=== PATIENT | male | born 1945 | race Caucasian/White ===

== ENCOUNTER 2025-03-20 14:53 | Outpatient (CLI) | payer OTHER, SELFPAY ==
--- NOTE | ~2025-03-20 | XR_ITS ---
EXAMINATION: XR chest 2V, 03/20/2025 15:10 CDT HISTORY: hx of nicotine dependence and stroke COMPARISON: No comparisons available. Technique: 2 views obtained. Findings: The lungs are clear, no effusion. No pneumothorax. Heart is normal size. Mediastinal and hilar contours are within normal limits. Bony thorax no acute abnormality. Impression: No acute cardiopulmonary abnormality. Reviewed, dictated and finalized at location P. Impression: No acute cardiopulmonary abnormality.
== END 2025-03-20 14:54 | disposition home or self-care (01) ==
LOC: ANHBWCLAB 14:55
PROVIDERS: PCP Nurse Practitioner Adult Health; Visit Provider Nurse Practitioner Adult Health
DX: E78.5 Hyperlipidemia, unspecified (principal); Z12.5 Encounter for screening for malignant neoplasm of prostate; F17.200 Nicotine dependence, unspecified, uncomplicated; Z86.73 Personal history of transient ischemic attack (TIA), and cerebral infarction without residual deficits
CPT/HCPCS: 71046

== ENCOUNTER 2025-03-21 13:59 | Outpatient (CLI) | payer OTHER, SELFPAY ==
[2025-03-21 19:23] LABS: Hematocrit 37.9 % (42.0-52.0); Hemoglobin 12.2 g/dL (14.0-18.0); Mean Corpuscular HGB Conc 32.2 g/dl (32-36); Mean Corpuscular Hemoglobin 30.4 pg (26-34); Mean Corpuscular Volume 94.5 fl (80-100); Platelet Count Result 198 k/mm3 (150-375); Red Blood Count 4.01 M/mm3 (4.6-6.20); White Blood Count 5.2 K/mm3 (4.5-10.0)
[2025-03-21 19:33] LABS: Alanine Aminotransferase 17 U/L (6-50); Albumin Level 4.3 g/dL (3.5-5.1); Alkaline Phosphatase 70 U/L (38-126); Anion Gap 6 mmol/L (4-12); Aspartate Amino Transferase 80 U/L (17-59); Bilirubin,Total 0.7 mg/dL (0.2-1.3); Blood Urea Nitrogen 23 mg/dL (9-20); Calcium 9.3 mg/dL (8.4-10.2); Carbon Dioxide 29 mmol/L (22-30); Chloride 101 mmol/L (98-107); Cholesterol 97 mg/dL (0-200); Estimated Glomerular Filt Rate 46; Glucose 92 mg/dL (65-110); HDL Direct 37 mg/dL; Potassium 4.8 mmol/L (3.4-5.0); Sodium 136 mmol/L (137-145); Total Protein 8.0 g/dL (6.3-8.2); Triglycerides 65 mg/dL (<150)
[2025-03-21 20:09] LABS: Prostate Specific Antigen 4.7 ng/mL (< OR = 4.0)
== END 2025-03-21 14:00 | disposition home or self-care (01) ==
LOC: ANHBWCLAB 14:01
PROVIDERS: PCP Nurse Practitioner Adult Health; Visit Provider Nurse Practitioner Adult Health
DX: E78.5 Hyperlipidemia, unspecified (principal); Z12.5 Encounter for screening for malignant neoplasm of prostate
CPT/HCPCS: 36415; 80053; 80061; 84153; 85027; G0103

== ENCOUNTER 2025-03-28 08:44 | Outpatient (CLI) | payer OTHER, SELFPAY ==
--- NOTE | ~2025-03-28 | CT_ITS ---
EXAMINATION:CT lung screening DATE: 03/28/2025 09:08 INDICATION: Nicotine dependence, cigarettes, uncomplicated. TECHNIQUE: Computed tomography (CT) of the chest was performed without intravenous contrast. Automated exposure control and iterative reconstruction technique were employed. The dose-length product (DLP) was 86.27 mGy-cm. COMPARISON: None. FINDINGS: There is moderate emphysema. There is mild atelectasis bilaterally. There is a 4 mm nodule at right major fissure. Calcified right lung nodules and calcified right hilar lymph nodes are consistent with old granulomatous disease. There is a 4 mm nodule in right lower lobe. There is a 4 mm nodule in right lower lobe. There are a few scattered pulmonary nodules measuring up to 3 mm. No pleural effusion. The heart size is normal. There are coronary artery calcifications. No pericardial effusion. Calcifications in the liver and spleen are consistent with old granulomatous disease. There are cysts in the liver measuring up to 17 mm. There is a stent graft in abdominal aorta. There is severe left hydronephrosis. There is mild chronic anterior wedging of multiple thoracic vertebral bodies. There is moderate thoracic spondylosis. IMPRESSION: 1. Lung-RADS category 2S: Benign appearance or behavior. Continue annual screening with noncontrast low-dose chest CT in 12 months. 2. Severe left hydronephrosis. Reviewed, dictated and finalized at location E. IMPRESSION: 1. Lung-RADS category 2S: Benign appearance or behavior. Continue annual screen ing with noncontrast low-dose chest CT in 12 months. 2. Severe left hydronephrosis.
--- NOTE | ~2025-03-28 | US_ITS ---
Clinical History: R09.89 - Other specified symptoms and signs involving the... Examination: US carotid duplex BI Comparison: None Technique: Grayscale, color, duplex/spectral Doppler sonography carotid and vertebral arteries. Distal CCA and Peak ICA systolic velocities provided. Society of Radiologists in Ultrasound (SRU) consensus criteria utilized, indirectly assessing stenosis by velocities. Findings: Extensive plaque left ICA Right side: CCA - 54 cm/sec. ICA - 109 cm/sec. ICA/CCA - 2.0 Left Side: CCA - 75 cm/sec. ICA - 130 cm/sec. ICA/CCA - 1.8 Normal antegrade flow measured bilateral vertebral arteries. IMPRESSION: 1. 50-69% stenosis left ICA. 2. No hemodynamically significant right ICA stenosis (i.e., if any stenosis, less than 50%). 3. Normal bilateral antegrade vertebral artery flow. Stenosis measured by Society of Radiologists in Ultrasound (SRU) criteria. Reviewed, dictated and finalized at location R. IMPRESSION: 1. 50-69% stenosis left ICA. 2. No hemodynamically significant right ICA stenosis (i.e., if any stenosis, l ess than 50%). 3. Normal bilateral antegrade vertebral artery flow. Stenosis measured by Society of Radiologists in Ultrasound (SRU) criteria.
--- OUTSIDE RECORDS SUMMARY | 2025-03-28 09:10 | XMS_ITS | Clinical Summary ---
Author Organization [facility] Address [address] [place] [phone] Phone Care Team Providers Care Residential Carpet Installer Name Role Phone Unavailable Primary Care Provider Unavailabl e Allergies No known active allergies Medications atorvastatin (LIPITOR) 40 mg tablet Take 40 mg by mouth Daily LATE. Active HYDROcodone-acet aminophen (NORCO) 5-325 mg tablet Take 1 Tab by mouth every 4 hours as needed for Pain, Mild (For Pain Scale 1-3). 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 Gender Identity Not on file Sexual Orientation Not on file Occupation Industry Job Start Date Job End Date Not on file Not on file Not on file Not on file Last Filed Vital Signs Vital Sign Reading Time Taken Comments Blood Pressure 138/67 05/17/2013 8:18 AM PROCESSING ANALYST Pulse 72 05/17/2013 8:18 AM PROCESSING ANALYST Temperature 36 C (96.8 F) 05/17/2013 8:18 AM PROCESSING ANALYST Respiratory Rate 16 05/17/2013 5:10 AM PROCESSING ANALYST Oxygen Saturation 93% 05/17/2013 5:10 AM PROCESSING ANALYST Inhaled Oxygen Concentration - - Weight 97.9 kg (215 lb 12.8 oz) 05/16/2013 9:27 AM PROCESSING ANALYST Height 185.4 cm (6' 1) 04/27/2013 11:0 1 AM PROCESSING ANALYST Body Mass Index 28.47 04/27/2013 11:01 AM PROCESSING ANALYST Plan of Treatment Health Maintenance Due Date Last Done Comments DTAP/TDAP/TD VACCINES (1 - Tdap) 1966 PNEUMOCOCCAL VACCINE 50+ YEARS (1 of 1 - PCV) 07/30/18 98 ZOSTER VACCINE (1 of 2) 1997 RSV VACCINE (60+ or ) (1 - 1-dose 75+ series) 2022 INFLUENZA VACCINE (#1) 2025 Insurance [facility] BLUE ACCESS/TRUE BLUE PPO Advance Directives For more information, please contact: [phone] * Full Code (Latest Code Status on File) Date Activated Date Inactivated Comments 05/16/2013 2:58 PM 05/17/2013 11:36 AM * Full Code Date Activated Date Inactivated Comments 05/16/2013 9:19 AM 05/16/2013 2:58 PM
--- OUTSIDE RECORDS SUMMARY | 2025-03-28 09:10 | XMS_ITS | Clinical Summary ---
Author Organization [facility] Address [address] [place] [address] Care Team Providers Care Franchise Field Consultant Name Role Phone Unavailable Primary Care Provider Unavailabl e Source Comments [facility],non-owned Affiliates and Associated Physician Practices is amultiple site organization consisting of ambulatory clinics and hospital sitesin [place], [place], [place] and [place]. This disclosure is being madepursuant to the Care Everywhere program and may not contain all information available regarding this patient. Last updated 18.[facility] Allergies No known active allergies Immunizations Immunization Administration Dates Next Due INFLUENZA VACCINE, HIGH-DOSE , QUADR. (FLUZONE HIGH-DOSE QUADRIVALENT; 65Y+), 0.7 ML ([id number]) 03/21/2018 Social History Tobacco Use Types Packs/Day Years Used Date Smoking Tobacco: Never Assessed Sex and Gender Information Value Date Recorded Sex Assigned at Not on file Legal Sex Male 4:29 PM CDT Gender Identity Not on file Sexual Orientation Not on file Plan of Treatment Health Maintenance Due Date Last Done Comments HEPATITIS C SCREENING 07/25/1965 DTAP/TDAP/TD VACCINES (1 - Tdap) 1966 PNEUMOCOCCAL VACCINE 50+ (1 of 1 - PCV) 1997 ZOSTER VACCINE (1 of 2) 1997 Respiratory Syncytial Virus (RSV) Vaccine Pt: or over 60 yrs (1 - 1-dose 75+ series) 2022 DEPRESSION SCREENING 06/13/2024 COVID-19 VACCINE ( - 2023-2 5 season) 2025 INFLUENZA VACCINE (#1) 2025 03/21/2018 HEPATITIS B VACCINE Aged Out No longe r eligible based on patient's age to complete this topic HIB VACCINE Aged Out No longer eligi ble based on patient's age to complete this topic HPV VACCINE Aged Out No longer eligi ble based on patient's age to complete this topic MENINGOCOCCAL (Group B) VACC INE SHARED DECISION-MAKING Aged Out No longer eligibl e based on patient's age to complete this topic MENINGOCOCCAL GROUPS A/C/Y/W VACCINE Aged Out No longer eligible b ased on patient's age to complete this topic Insurance MEDICARE MEDICARE MEDICARE
--- OUTSIDE RECORDS SUMMARY | 2025-03-28 09:10 | XMS_ITS | Clinical Summary ---
Author Organization [facility] Address [address] [place] [id number] Care Team Providers Care Health Information Tech Name Role Phone WingSilvia ZAKIA Primary Care Provider [phone] Allergies Active Allergy Reactions Criticality Noted Date Comments Cyclobenzaprine Other (See comments) Medium 07/01/2017 Swelling, depression Swelling, bleeding, depression Naproxen Swelling Medium 08/01/2017 Fluid retention Medications ascorbic acid (ascorbic acid) 500 mg tablet,chewable Take 1 tablet/chew tab (500 mg total) by mouth 08/12/19 18 Active magnesium gluconate 200 mg tabletIndications :hypomagnesemia Take 2 tablets (400 mg total) by mouth daily Active vitamin E 1,000 unit capsule Take 1 capsule (1,000 Units total) by mouth daily Active lidocaine (LMX) 4 % cream Apply topically 3 (three) times a day 30 g 12/06/19 24 Active HYDROcodone-aceta minophen (NORCO) 5-325 mg per tabletIndications :Pain Take 1-2 tablets by mouth every 6 (six) hours as needed for pain 21 tablet 11/10/19 25 Active atorvastatin (LIPITOR) 80 mg tabletIndications :Acute CVA (cerebrovascular accident) (HCC),Hyperlipide preston, unspecified hyperlipidemia type Take 1 tablet (80 mg total) by mouth daily 90 tablet 02/09/20 25 Active clopidogreL (PLAVIX) 75 mg tabletIndications :Acute CVA (cerebrovascular accident) (HCC) Take 1 tablet by mouth once daily 30 tablet 09/26/20 25 Active lisinopriL (PRINIVIL,ZESTRIL ) 30 mg tabletIndications :Hypertension, essential,Acute CVA (cerebrovascular accident) (HCC) Take 1 tablet by mouth once daily 90 tablet 03/19/20 25 Active lisinopriL (PRINIVIL,ZESTRIL ) 30 mg tabletIndications :Hypertension, essential,Acute CVA (cerebrovascular accident) (HCC) Take 1 tablet (30 mg total) by mouth daily 90 tablet 1 09/14/19 25 025 Discontinued clopidogreL (PLAVIX) 75 mg tabletIndications :Acute CVA (cerebrovascular accident) (HCC) Take 1 tablet by mouth once daily 90 tablet 12/01/19 25 025 Discontinued Active Problems Problem Noted Date Diagnosed Date Epidermal cyst 12/20/2023 Assessment & Plan (01/10/2024 12:37 PM CDT): Follow up from appt with Dr. Perez Continues to have scant amount of purulent drainage Denies pain or fever Would prefer to continue to monitor Assessment & Plan (12/20/2023 9:09 AM CDT): We have discussed further treatments with the patient and family at bedside. To ensure this would not come back we would have to ensure we removed the entirety of the lining of the cyst wall. Given the amount of inflammation still present this would result in a very significant sized defect needed to be made. We would prefer to place him on extended duration of antibiotics to see if the last residual purulence we will stop and if the skin will heal and be viable. Then they can decide whether or not it is worth it to remove the cyst so that it does not come back versus just watching as they have done for the other ones in the past. Dysthymia 10/06/2023 Assessment & Plan (10/06/2023 4:51 PM CDT): Patient reports generally low mood; decreased activity, though recently improving for patient Patient's which is caused him to feel down and lose interest in things in life Encouraged patient to continue to engage with activities as able; continue to monitor; no medication at this time Hypertension, essential 05/11/2023 Assessment & Plan (10/06/2023 4:51 PM CDT): Stable, well controlled; tolerating medication changes well; blood pressure improved, goal today No chest pain Continue lisinopril 30 mg daily; check CMP Assessment & Plan (09/07/2023 2:51 PM CDT): Chronic, elevated at visit; 162/94 Increase Lisinopril 30 mg daily Follow up 4 weeks Assessment & Plan (06/08/2023 3:59 PM SQUAD BOSS): Stable, currently well controlled BP at goal at visit; 126/74 Continue Lisinopril 20 mg Assessment & Plan (05/12/2023 12:37 PM SQUAD BOSS): Not well controlled BP at visit 174/98 Start Lisinopril 20 mg daily Follow up in 4 weeks Impacted cerumen of right ear 12/22/2022 Assessment & Plan (12/22/2022 9:38 PM CDT): Avoid ear cleaning techniques Acute CVA (cerebrovascular accident) 12/02/2022 Assessment & Plan (10/06/2023 4:50 PM CDT): Stable, not well controlled; continues to have some numbness in change in function of right hand; patient is right-handed which impacts his ability to do many task Encouraged continued regular physical activity, use of hand as able to continue to improve function Continue Plavix 75 mg daily, atorvastatin 80 mg daily Assessment & Plan (09/07/2023 3:01 PM CDT): Stable, no know recurrent events Continue ASA 325 mg daily, Plavix 75 mg daily, Atorvastatin 80 mg daily and Lisinopril 30 mg daily Has been having pain in right arm again [place] 7.5-325 mg TID PRN Assessment & Plan (06/20/2023 12:19 PM SQUAD BOSS): Stable, no know recurrent events; continuing to improve Continue ASA 325 mg daily, Plavix 75 mg daily, Atorvastatin 80 mg daily and Lisinopril 20 mg daily Assessment & Plan (05/12/2023 12:36 PM SQUAD BOSS): Stable, no known recurrent events Continue ASA 325 mg daily, Plavix 75 mg daily, Atorvastatin 80 mg daily Start Lisinopril 20 mg daily Assessment & Plan (01/25/2023 5:50 PM CDT): Stable, no recurrent episodes Continue ASA 325 mg daily, Plavix 75 mg daily, atorvastatin 80 mg daily Weakness of left upper extremity 11/30/2022 Thyroid nodule 11/30/2022 Parotid nodule 11/30/2022 Assessment & Plan (01/25/2023 5:49 PM CDT): Referral for biopsy Assessment & Plan (12/22/2022 1:58 PM CDT): Right Parotid Mass Fine needle aspiration - call with results Tobacco dependence due to cigarettes 11/30/2022 Assessment & Plan (01/05/2023 11:13 AM CDT): Continues to smoke, about 10-15 cigarettes per day -has quit for extended duration in past -previously quit using vape -now using small amount of salt to help reduce craving BPH (benign prostatic hyperplasia) 06/13/2019 Primary osteoarthritis of left hip 08/06/2017 Abdominal aortic aneurysm (AAA) without rupture 12/11/2015 Assessment & Plan (01/05/2023 10:27 AM CDT): Stable with graft in place Hyperlipidemia 08/27/2015 Assessment & Plan (09/07/2023 2:52 PM CDT): Chronic, labs ordered Continue Atorvastatin 80 mg daily Will make adjustments as needed Assessment & Plan (05/12/2023 12:36 PM SQUAD BOSS): Stable, not well controlled Continue Atorvastatin 80 mg daily Assessment & Plan (01/25/2023 5:50 PM CDT): Stable, not well controlled Continue atorvastatin 80 mg daily 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 Resolved Problems Problem Noted Date Diagnosed Date Resolved Date Aftercare following left hip joint replacement surgery 08/24/2017 12/17/2022 Immunizations Immunization Administration Dates Next Due Influenza, Quad, Adjuvantate d, Intramuscular 05/21/2022 Influenza, Quadrivalent, Hig h Dose, Preservative Free, Intrr 05/11/2023,03/21/2018 Influenza, Trivalent, High D ose, Split, Preservative Free, Intramuscular 03/21/2018 Influenza, Unspecified 03/14/2022(Deferr ed: Patient Refused),03/13/2021 Pneumococcal Conjugate PCV 13 05/20/2016 Pneumococcal Polysaccharide PPV23 11/29/2018 Tdap 08/27/2015 Surgical History Surgery Date Site/Laterality Comments OTHER SURGICAL HISTORY carotid surgery OTHER SURGICAL HISTORY mass on neck HIP SURGERY JOINT REPLACEMENT Left left hip Medical History Medical History Date Comments Hx Other Medical high cholestero l; Comments: JWS 06/29/2016 - Aftercare following left hip joint replacement surgery 08/24/2017 Family History Medical History Relation Name Comments Cancer Other Family history of cancer; Relation Name Status Comments Father Mother Other Social History Tobacco Use Types Packs/Day Years Used Date Smoking Tobacco: Some Days Cigarettes Smokeless Tobacco: Never Tobacco Cessation:Ready to Q uit: Not Asked; Counseling Given: Not Answered Alcohol Use Standard Drinks/Week Comments Yes 0 (1 standard drink = 0.6 oz pur e alcohol) Social Connection and Isolation Panel Answer Date Recorded In a typical week, how many times do you talk on the phone with family, friends, or neighbors? Three times a week 12/30/19 How often do you get togethe r with friends or relatives? Once a week 12/29/2022 [facility] services? 1 to 4 times per year 12/29/2022 Do you belong to any clubs o r organizations such as taoism groups, unions, fraternal or athletic groups, or school groups? No 12/29/2022 How often do you attend meet ings of the clubs or organizations you belong to? Never 12/29/2022 Are you , , di vorced, , never , or living with a partner? 12/29/2022 AUDIT-C Answer Date Recorded Q1: How often do you have a drink containing alc ohol? Never 01/05/2023 Average Number of Drinks Not on file 023 Frequency of Binge Drinking Not on file 12/12 Overall Financial Resource Strain (CARDIA) Answe r Date Recorded How hard is it for you to pa y for the very basics like food, housing, medical care, and heating? Not very hard 12/13/2022 PHQ-2 Answer Date Recorded PHQ-2 Total Score (If total score is 3 or more points, staff should administer the PHQ-9) 0 01/10/2024 PRAPARE - Transportation Answer Date Re corded In the past 12 months, has l ack of transportation kept you from medical appointments or from getting medications? No 11/12 In the past 12 months, has l ack of transportation kept you from meetings, work, or from getting things needed for daily living? No 12/06/2022 Housing Stability Vital Sign Answer Luan e Recorded In the last 12 months, was t here a time when you were not able to pay the mortgage or rent on time? No 12/13/2022 In the last 12 months, how many places have you lived? 1 12/13/2022 In the last 12 months, was t here a time when you did not have a steady place to sleep or slept in a skilled nursing (including now)? No 12/13/2022 Personal Safety Answer Date Recorded Have you ever been in or are you currently in a harmful physical or emotional relationship or is someone making you feel afraid or unsafe? Denies 12/06/2023 Sex and Gender Information Value Date Recorded Sex Assigned at Not on file Legal Sex Male 9:07 AM SQUAD BOSS Gender Identity Not on file Sexual Orientation Not on file Obstetrics History Last Filed Vital Signs Vital Sign Reading Time Taken Comments Blood Pressure 136/84 01/10/2024 11:44 AM CDT Pulse 71 01/10/2024 11:44 AM CDT Temperature 36.4 C (97.6 F) 01/10/2024 11:44 AM CDT Respiratory Rate 16 01/10/2024 11:44 AM CDT Oxygen Saturation 97% 01/10/2024 11:44 AM CDT Inhaled Oxygen Concentration - - Weight 83.9 kg (185 lb) 01/10/2024 11:44 AM CDT Height 188 cm (6' 2) 01/10/2024 11:44 AM CDT Body Mass Index 23.75 01/10/2024 11:44 AM CDT Plan of Treatment Health Maintenance Due Date Last Done Comments Zoster Vaccine (1 of 2) 1997 Well Visit 65+ 05/11/2024 05/11/2023, 12/2022, 12/17/2022 Fall Risk Assessment 10/05/2024 10/06/2023, 12/17/2022, 12/08/2022, Additional history exists Depression Screening 01/09/2025 01/10/2024, 10/06/2023, 09/07/2023, Additional history exists Covid-19 Vaccine ( - 2024- 6 season) 2025 05/21/2022, 04/21/2021, 08/26/2020, Additional history exists Influenza Vaccine (#1) 2025 , 05/21/2022, 03/13/2021, Additional history exists DTaP/Tdap/Td Vaccine (2 - Td or Tdap) 08/26/2025 08/27/2015 Pneumococcal vaccine 65+ Completed 11/29/2018, 01/2016 Abdominal Aortic Aneurysm (A AA) Screen Completed 01/05/2023, 11/30/2022, 12/26/2015, Additional history exists Hepatitis B Screening Completed 10/06/2023 Hepatitis C Screening Discontinued Procedures Procedure Name Priority Date/Time Associated Diagnosis Comments CTA CHEST ABDOMEN PELVIS ED Urgent/IP Urgent 11/30/2022 8:36 AM CDT from Last 3 Months or Most Recently Relevant to Health Maintenance Results * CTA Chest Abdomen Pelvis (11/30/2022 8:36 AM CDT) Anatomical Region Laterality Modality Body N/A Computed Tomogra phy 11/30/2022 8:38 AM CDT Narrative 11/30/2022 9:03 AM CDT EXAM DESCRIPTION: CTA CHEST ABDOMEN PELVIS REASON FOR STUDY: Aortic atherosclerosis, descending thoracic plaque vs intramural thrombus Aortic atherosclerosis Descending thoracic plaque vs - intramural thrombus Extremity weakness TECHNIQUE: CTA scan of the chest, abdomen, and pelvis performed without and with intravenous and without oral contrast using helical scanning technique with dynamic intravenous contrast injection. Precontrast images of the chest were acquired. Arterial phase images of the chest, abdomen, and pelvis as well as portal venous phase images of the abdomen were also acquired. Reconstructed coronal and sagittal MPR images reviewed. All images stored on PACS. 3D MIP images rendered on scanning unit and reviewed at time of interpretation. Automated exposure control was used as a dose optimization technique for this examination. CONTRAST TYPE/DOSE: 100mL of IOVERSOL 350 MG IODINE/ML INTRAVENOUS SOLUTION injected via intravenous COMPARISON: CT angiogram abdomen and pelvis 12/26/2015 REFERENCE: Per ACR white paper recommendations, unless otherwise specified no follow-up imaging is recommended for incidental renal and adrenal lesions per consensus recommendations based on imaging criteria. Further lab evaluation could be pursued based on clinical findings. FINDINGS: VASCULATURE: AORTA: No evidence of aortic dissection or intramural hematoma. Diffuse atherosclerotic calcifications. Stable infrarenal abdominal aorto bi-iliac stent graft. No evidence of stent migration or endoleak. No new aortic aneurysm. The mid ascending thoracic aorta has a maximum AP diameter of 3.0 cm. There is prominent noncalcified atheromatous plaque along the posterior aspect of the proximal to mid descending thoracic aorta, without significant luminal narrowing. No identified central pulmonary embolus. No large vessel occlusion. CELIAC TRUNK: No flow limiting stenosis, dissection, or aneurysm. SUPERIOR MESENTERIC ARTERY: No flow limiting stenosis, dissection, or aneurysm. RIGHT RENAL ARTERY: No flow limiting stenosis, dissection, or aneurysm. LEFT RENAL ARTERY: No flow limiting stenosis, dissection, or aneurysm. INFERIOR MESENTERIC ARTERY: No flow limiting stenosis, dissection, or aneurysm. ILIAC ARTERIES: Mild atherosclerotic disease of the bilateral iliac arteries distal to the stent grafts. No flow limiting stenosis, dissection, or aneurysm. CHEST LUNGS: Moderate centrilobular and paraseptal emphysema with an upper lobe predominance. No focal consolidation. Bilateral dependent subsegmental atelectasis. The central airways are patent. Right lower lobe 7 mm noncalcified solid pulmonary nodule (series 5, image 182). This nodule is stable from 2020. Left upper lobe 3 mm nodule (series 5, image 151). Posterior left lower lobe 7 mm nodule, stable from 2020 (185). Stable 4 mm left upper lobe nodule (188. PLEURA: No effusion. No pneumothorax. MEDIASTINUM/LEYLA: No identified masses or abnormal nodes. HEART: Heart size is normal with no pericardial effusion. AXILLA: No adenopathy. CHEST WALL: No masses. No subcutaneous air. HARDWARE/LINES/TUBES: None. MUSCULOSKELETAL CHEST: No significant abnormality. ABDOMEN/PELVIS LIVER: Scattered subcentimeter calcified granulomas. Stable hepatic cysts. No identified cystic or solid masses. No cysts. GALLBLADDER: No stones identified. No wall thickening or inflammatory changes. BILE DUCTS: No intrahepatic or extrahepatic ductal dilatation. SPLEEN: Normal size. No suspicious focal lesions. Scattered calcified granulomas. PANCREAS: No identified cystic or solid masses. No significant calcifications. No adjacent inflammation or peripancreatic fluid collections. Pancreatic duct not dilated. ADRENALS: Normal. KIDNEYS/URINARY TRACT: No identified significant cystic or solid masses. No stones. No hydronephrosis or hydroureter. Symmetric enhancement. Urinary bladder is unremarkable. GI: Stomach is normal. No dilated bowel loops. No obvious wall thickening. The appendix is not visualized. Colonic diverticulosis. No evidence of acute diverticulitis. PERITONEUM: No ascites or free air. RETROPERITONEUM: No mass or adenopathy. REPRODUCTIVE: Markedly enlarged prostate gland. VASCULATURE ABDOMEN: No abdominal aortic aneurysm. No major occlusion or flow limiting stenosis. MUSCULOSKELETAL ABDOMEN PELVIS: No acute finding. Left hip prosthesis. OTHER: No significant abnormality. IMPRESSION: 1. Prominent noncalcified atheromatous plaque along the posterior aspect of the proximal to mid descending thoracic aorta, without significant luminal narrowing. No evidence of aortic dissection. 2. Stable infrarenal aorto bi-iliac stent graft. No evidence of endoleak. No new aortic aneurysm. THIS IS AN ELECTRONICALLY VERIFIED FINAL REPORT 11/30/2022 9:03 AM - Electronically signed by Alex Feliciano M.D. KR: RIKY Report ID: [id number] Reading Location: [id number] Procedure Note Alex Feliciano MD - 11/30/2022 EXAM DESCRIPTION: CTA CHEST ABDOMEN PELVIS REASON FOR STUDY: Aortic atherosclerosis, descending thoracic plaque vs intramural thrombus Aortic atherosclerosis Descending thoracic plaque vs - intramuralthrombus Extremity weakness TECHNIQUE: CTA scan of the chest, abdomen, and pelvis performed withoutand with intravenous and without oral contrast using helical scanningtechnique with dynamic intravenous contrast injection. Precontrast images of thechest were acquired. Arterial phase images of the chest, abdomen, and pelvis aswell as portal venous phase images of the abdomen were also acquired.Reconstructed coronal and sagittal MPR images reviewed. All images stored on PACS. 3DMIP images rendered on scanning unit and reviewed at time of interpretation. Automated exposure control was used as a dose optimization technique forthis examination. CONTRAST TYPE/DOSE: 100mL of IOVERSOL 350 MG IODINE/ML INTRAVENOUSSOLUTION injected via intravenous COMPARISON: CT angiogram abdomen and pelvis 12/26/2015 REFERENCE: Per ACR white paper recommendations, unless otherwise specifiedno follow-up imaging is recommended for incidental renal and adrenal lesionsper consensus recommendations based on imaging criteria. Further labevaluation could be pursued based on clinical findings. FINDINGS: VASCULATURE: AORTA: No evidence of aortic dissection or intramural hematoma. Diffuse atherosclerotic calcifications. Stable infrarenal abdominal aortobi-iliac stent graft. No evidence of stent migration or endoleak. No new aortic aneurysm. The mid ascending thoracic aorta has a maximum AP diameter of3.0 cm. There is prominent noncalcified atheromatous plaque along theposterior aspect of the proximal to mid descending thoracic aorta, withoutsignificant luminal narrowing. No identified central pulmonary embolus. No large vessel occlusion. CELIAC TRUNK: No flow limiting stenosis, dissection, or aneurysm. SUPERIOR MESENTERIC ARTERY: No flow limiting stenosis, dissection, or aneurysm. RIGHT RENAL ARTERY: No flow limiting stenosis, dissection, or aneurysm. LEFT RENAL ARTERY: No flow limiting stenosis, dissection, or aneurysm. INFERIOR MESENTERIC ARTERY: No flow limiting stenosis, dissection, or aneurysm. ILIAC ARTERIES: Mild atherosclerotic disease of the bilateral iliacarteries distal to the stent grafts. No flow limiting stenosis, dissection, or aneurysm. CHEST LUNGS: Moderate centrilobular and paraseptal emphysema with an upperlobe predominance. No focal consolidation. Bilateral dependent subsegmental atelectasis. The central airways are patent. Right lower lobe 7 mm noncalcified solid pulmonary nodule (series 5, image 182). This nodule is stable from 2020. Left upper lobe 3 mm nodule (series 5, image 151). Posterior left lower lobe 7 mm nodule, stable from 2020 (185). Stable 4mm left upper lobe nodule (188. PLEURA: No effusion. No pneumothorax. MEDIASTINUM/LEYLA: No identified masses or abnormal nodes. HEART: Heart size is normal with no pericardial effusion. AXILLA: No adenopathy. CHEST WALL: No masses. No subcutaneous air. HARDWARE/LINES/TUBES: None. MUSCULOSKELETAL CHEST: No significant abnormality. ABDOMEN/PELVIS LIVER: Scattered subcentimeter calcified granulomas. Stable hepaticcysts. No identified cystic or solid masses. No cysts. GALLBLADDER: No stones identified. No wall thickening or inflammatory changes. BILE DUCTS: No intrahepatic or extrahepatic ductal dilatation. SPLEEN: Normal size. No suspicious focal lesions. Scattered calcified granulomas. PANCREAS: No identified cystic or solid masses. No significant calcifications. No adjacent inflammation or peripancreatic fluidcollections. Pancreatic duct not dilated. ADRENALS: Normal. KIDNEYS/URINARY TRACT: No identified significant cystic or solid masses.No stones. No hydronephrosis or hydroureter. Symmetric enhancement.Urinary bladder is unremarkable. GI: Stomach is normal. No dilated bowel loops. No obvious wallthickening. The appendix is not visualized. Colonic diverticulosis. No evidence ofacute diverticulitis. PERITONEUM: No ascites or free air. RETROPERITONEUM: No mass or adenopathy. REPRODUCTIVE: Markedly enlarged prostate gland. VASCULATURE ABDOMEN: No abdominal aortic aneurysm. No major occlusion or flow limiting stenosis. MUSCULOSKELETAL ABDOMEN PELVIS: No acute finding. Left hip prosthesis. OTHER: No significant abnormality. IMPRESSION: 1. Prominent noncalcified atheromatous plaque along the posterior aspectof the proximal to mid descending thoracic aorta, without significant luminal narrowing. No evidence of aortic dissection. 2. Stable infrarenal aorto bi-iliac stent graft. No evidence ofendoleak. No new aortic aneurysm. THIS IS AN ELECTRONICALLY VERIFIED FINAL REPORT 11/30/2022 9:03 AM - Electronically signed by Alex Feliciano M.D. KR: RIKY Report ID: [id number] Reading Location: [place] [id number] Ludivina Prabhakar NP [facility] CT PROCEDURES F inal Result from Last 3 Months or Most Recently Relevant to Health Maintenance [place] [address] [facility] Advance Directives For more information, please contact: [phone] * Full Code (Latest Code Status on File) Date Activated Date Inactivated Comments 11/29/2022 1:47 PM 12/02/2022 8:09 PM Care Teams Health Information Tech Relationship Specialty Start Date End Date Silvia Dimas NP PCP - General Family Medicine 12/07/22
--- OUTSIDE RECORDS SUMMARY | 2025-03-28 09:10 | XMS_ITS | Clinical Summary ---
Author Organization [facility] Care Team Providers Care Metalsmith Apprentice Name Role Phone Chavo Lloyd MD Primary Care Provider [phone] Allergies Active Allergy Reactions Criticality Noted Date Comments Cyclobenzaprine Other (see Comments) Medium 07/01/2017 Swelling, depression Naproxen Swelling 08/01/2017 Fluid retention Medications Ferrous Sulfate (IRON PO) Take 130 mg by mouth nightly. Active ascorbic acid 500 MG Tablet Take 1 Tablet by mouth nightly. 60 Tablet 09/23/2021 Active clopidogrel (PLAVIX) 75 MG TabletIndication s:Right arm weakness Take 1 tablet by mouth once daily 90 Tablet 1 12/29/2021 Active simvastatin (ZOCOR) 10 MG Tablet Take 1 Tablet by mouth every evening. 90 Tablet 2 04/27/2022 Active Active Problems Problem Noted Date Diagnosed Date History of transient ischemic attack (TIA) 11/26 History of abdominal aortic aneurysm (AAA) repai r 11/26/2021 BPH (benign prostatic hyperplasia) 06/13/2019 Hyperlipidemia 08/27/2015 Resolved Problems Problem Noted Date Diagnosed Date Resolved Date Status post total hip replacement, left 08/10/2017 11/29/2018 Arthritis 08/10/2017 Immunizations Immunization Administration Dates Next Due Covid-19, Mrna, Lnp-s, Pf, 3 0 Mcg/0.3 Ml Dose ([employer]) 04/21/2021,08/26/2020,08/05/2020 Influenza, High-dose, Quadrivalent 03/21/2018 Influenza, high-dose, trivalent, PF 03/21/2018 PUR PCV-13 05/20/2016 PUR TDAP 7+ YRS IM 08/27/2015 Pneumococcal Vaccine Adult - 23 Valent 9 Family History Medical History Relation Name Comments No Known Problems Brother 1 Cancer Brother 2 malignant melen yogesh Cancer Father Prostate No Known Problems Mother Relation Name Status Comments Brother 1 Brother 2 Father Mother Social History Tobacco Use Types Packs/Day Years Used Date Smoking Tobacco: Former Cigarettes 1 40 0 11/22/1978 - 11/22/2018 Smokeless Tobacco: Never Tobacco Cessation:Counseling Given: No Alcohol Use Standard Drinks/Week Comments No 0 (1 standard drink = 0.6 oz pur e alcohol) PHQ-2 Answer Date Recorded Total Score - Questions 1-9 0 11/12 Sex and Gender Information Value Date Recorded Sex Assigned at Not on file Legal Sex Male 9:52 AM CDT Gender Identity Not on file Sexual Orientation Not on file 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 on file Not on file Not on file Last Filed Vital Signs Vital Sign Reading Time Taken Comments Blood Pressure 118/64 11/26/2021 10:32 AM CDT Pulse 56 11/26/2021 10:32 AM CDT Temperature 36.4 C (97.5 F) 11/26/2021 10:32 AM CDT Respiratory Rate 16 11/26/2021 10:32 AM CDT Oxygen Saturation 95% 11/26/2021 10:32 AM CDT Inhaled Oxygen Concentration - - Weight 91.6 kg (202 lb) 11/26/2021 10:32 AM CDT Height 185.4 cm (6' 1) 11/26/2021 10:32 AM CDT Body Mass Index 26.65 11/26/2021 10:32 AM CDT Plan of Treatment Health Maintenance Due Date Last Done Comments Zoster Immunization (1 of 2) 1997 Medicare Initial AWV [id number] 10/11/2013 Respiratory Syncytial Virus (RSV) Immunization (Adult) (1 - 1-dose 75+ series) 2022 Influenza Immunization (#1) 2025 10/0 02/2018, 03/21/2018 SARS-COV-2 Immunization ( season) 2025 04/21/2021, 08/26/2020, 08/05/2020 Td Immunization Every 10 Yea rs (Adults With 1 Tdap) 08/26/2025 08/27/2015 AAA Screening Ultrasound Discontinued 12/26/2015 Hepatitis C Virus (HCV) Screening Completed 08/27/2016 Pneumococcal Immunization (5 0+ years) Completed 11/29/2018, 05/20/2016 Pneumococcal Immunization Combined Discontinued 11/29/2018, 05/20/2016 Colonoscopy Discontinued 01/16/2020, 07/01/2017 Colorectal Cancer Screening Discontinued Cologuard Discontinued Hepatitis B Immunization Aged Out No longer eligible based on patient's age to complete this topic Human Papillomavirus (HPV) Immunization Aged Out No longer eligible based on patient's age to complete this topic Immunochemical Fecal Occult Blood Discontinued Meningococcal Immunization (ACWY) Aged Out No longer eligible based on patient's age to complete this topic Rotavirus Immunization Aged Out No lo nger eligible based on patient's age to complete this topic Medical Devices Implanted Type Area Casino Gaming Inspector Device Identifier Shelf Expiration Date Model / Serial / Lot Shell Actb 58mm Hip Sector Gription [place] - [id number] Implanted:Qty: 1 on 08/09/2017 by Les Pastrana MD at [facility] IMPLANT Left: Hip Depuy [employer] 06/12/2027 [id number] / [id number] / [id number] Liner Actb Altrx [place] Neutral 58mm 36mm Hip - [id number] Implanted:Qty: 1 on 08/09/2017 by Les Pastrana MD at [facility] IMPLANT Left: Hip [employer]uy [employer] 06/12/2022 [id number] / [id number] / [id number] Head Fem 1.5mm 12/14 Taper 36mm Hip Cementless Biolox Delta Articul/Cesar - [id number] Implanted:Qty: 1 on 08/09/2017 by Les Pastrana MD at [facility] IMPLANT Left: Hip [employer]uy [employer] 05/12/2022 [id number] / [id number] / [id number] Femoral Stem12/14 Taper Implanted:Qty: 1 on 08/09/2017 by Les Pastrana MD at [facility] Left: Hip DePuy 12/10/2026 1010-12-060 / [id number] / [id number] Procedures Procedure Name Priority Date/Time Associated Diagnosis Comments HEPATITIS C ANTIBODY Routine 08/27/2016 9:13 AM CDT Encounter for hepatitis C screening test for low risk patient from Last 3 Months or Most Recently Relevant to Health Maintenance Results * HEPATITIS C ANTIBODY (08/27/2016 9:13 AM CDT) hepatitis C antibody 0.13 <1 S/CO 08/27/2016 10:29 PM CDT [facility] Comment: Signal/Cutoff ratio < 0.79 is Nondetected Signal/Cutoff ratio 0.80-0.99 is Grayzone Signal/Cutoff ratio > 0.99 is Detected Supplemental assays are recommended if signal/cutoff ratio is >/=1.00. Signal/cutoff ratio result >/= 5.00 is 97% predictive of positivity for recombinant immunoblot assay (RIBA) and will be reported to the [place] Department of Public Health as required. Blood specimen (specimen) Venipuncture / Unknown 08/27/2016 9:13 AM CDT 08/27/2016 9:14 AM CDT us Chavo Lloyd MD CHEMISTRY ORDERABLES Kaye cardenas Result [facility] [address] [place] [address], [place] from Last 3 Months or Most Recently Relevant to Health Maintenance Insurance MEDICARE C ESSENCE Care Teams Metalsmith Apprentice Relationship Specialty Start Date End Date Chavo Lloyd MD [address] [place] [address] PCP - General Internal Medicine 05/20/16
--- OUTSIDE RECORDS SUMMARY | 2025-03-28 09:10 | XMS_ITS | Encounter Summary ---
Author Organization [facility] Healthcare Address [address] [place] [address] Care Team Providers Care Forest Science Professor Name Role Phone Chavo Lloyd MD Primary Care Provider + Jovani Miller RN Unavailable [phone] Silvia Dimas NP Primary Care Provider [phone] Encounter Details Date Type Department Care Team (Late st Contact Info) Description 11/15/2019 Telephone 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
== END 2025-03-28 08:45 | disposition home or self-care (01) ==
PROVIDERS: PCP Nurse Practitioner Adult Health; Visit Provider Nurse Practitioner Adult Health
DX: Z12.2 Encounter for screening for malignant neoplasm of respiratory organs (principal); F17.210 Nicotine dependence, cigarettes, uncomplicated; R09.89 Other specified symptoms and signs involving the circulatory and respiratory systems; I25.10 Atherosclerotic heart disease of native coronary artery without angina pectoris; I65.22 Occlusion and stenosis of left carotid artery
CPT/HCPCS: 71271; 93880

== ENCOUNTER 2025-04-17 13:44 | Outpatient (CLI) | payer OTHER, SELFPAY ==
[2025-04-17 19:05] LABS: Iron 74 ug/dL (49-181)
[2025-04-17 19:10] LABS: Anion Gap 10 mmol/L (4-12); Blood Urea Nitrogen 26 mg/dL (9-20); Calcium 9.1 mg/dL (8.4-10.2); Carbon Dioxide 27 mmol/L (22-30); Chloride 102 mmol/L (98-107); Estimated Glomerular Filt Rate 51; Glucose 82 mg/dL (65-110); Potassium 4.5 mmol/L (3.4-5.0); Sodium 139 mmol/L (137-145)
[2025-04-17 19:14] LABS: Percent Iron Saturation 29 % (20-50)
[2025-04-17 19:46] LABS: Ferritin 365.00 ng/mL (11.1-264)
--- OUTSIDE RECORDS SUMMARY | 2025-04-18 13:11 | XMS_ITS | Clinical Summary ---
Author Organization [facility] Address [address] [place] [id number] Care Team Providers Care Risk Adjustment Specialist Name Role Phone Unavailable Primary Care Provider Unavailabl e Social History Tobacco Use Types Packs/Day Years Used Date Smoking Tobacco: Never Assessed Sex and Gender Information Value Date Recorded Sex Assigned at Not on file Legal Sex Male 7:37 PM CDT Gender Identity Not on file Sexual Orientation Not on file Plan of Treatment Health Maintenance Due Date Last Done Comments Hepatitis C 1963 DTaP, Tdap and Td Vaccines ( 1 - Tdap) 1966 Pneumococcal Vaccine: 50+ Ye ars (1 of 1 - PCV) 1997 Zoster Vaccines (1 of 2) 1997 RSV Immunization or 60+ Years (1 - 1-dose 75+ series) 2022 COVID-19 Vaccine ( - 2024-2 6 season) 2025 Influenza Adult (#1) 2025 Hepatitis A Vaccines Aged Out No long er eligible based on patient's age to complete this topic Meningococcal B Vaccine Aged Out No l onger eligible based on patient's age to complete this topic Meningococcal Vaccine Aged Out No maria del carmen kennedy eligible based on patient's age to complete this topic RSV Immunizations Under 20 Months Aged Out No longer eligible based on patient's age to complete this topic
--- OUTSIDE RECORDS SUMMARY | 2025-04-18 13:11 | XMS_ITS | Clinical Summary ---
Author Organization [facility] Address [address] [place] [id number] Phone Care Team Providers Care Van Helper Name Role Phone Unavailable Primary Care Provider [...] on file Legal Sex Male 3:05 PM SAMPLER TESTER Gender Identity Not on file Sexual Orientation Not on file Occupation Industry Job Start Date Job End Date Not on file Not on file Not on file Not on file Last Filed Vital Signs Vital Sign Reading Time Taken Comments Blood Pressure 138/67 05/17/2013 8:18 AM SAMPLER TESTER Pulse 72 05/17/2013 8:18 AM SAMPLER TESTER Temperature 36 C (96.8 F) 05/17/2013 8:18 AM SAMPLER TESTER Respiratory Rate 16 05/17/2013 5:10 AM SAMPLER TESTER Oxygen Saturation 93% 05/17/2013 5:10 AM SAMPLER TESTER Inhaled Oxygen Concentration - - Weight 97.9 kg (215 lb 12.8 oz) 05/16/2013 9:27 AM SAMPLER TESTER Height 185.4 cm (6' 1) 04/27/2013 11:0 1 AM SAMPLER TESTER Body Mass Index 28.47 04/27/2013 11:01 AM SAMPLER TESTER Plan of Treatment Health Maintenance Due Date Last Done Comments DTAP/TDAP/TD VACCINES (1 - Tdap) 1966 PNEUMOCOCCAL VACCINE 50+ YEARS (1 of 1 - PCV) 07/30/18 98 ZOSTER VACCINE (1 of 2) 1997 RSV VACCINE (60+ or ) (1 - 1-dose 75+ series) 2022 INFLUENZA VACCINE (#1) 2025 Insurance [facility] BLUE ACCESS/TRUE BLUE PPO Advance Directives For more information, please contact: [phone] * Full Code (Latest Code Status on File) Date Activated Date Inactivated Comments 05/16/2013 2:58 PM 05/17/2013 11:36 AM * Full Code Date Activated Date Inactivated Comments 05/16/2013 9:19 AM 05/16/2013 2:58 PM
--- OUTSIDE RECORDS SUMMARY | 2025-04-18 13:11 | XMS_ITS | Encounter Summary ---
Author Organization [facility] Healthcare Address [address] [place] [address] Care Team Providers Care Lead Cargo Mover Name Role Phone Chavo Lloyd MD Primary Care Provider + Jovani Miller RN Unavailable [phone] Silvia Dimas NP Primary Care Provider [phone] Encounter Details Date Type Department Care Team (Late st Contact Info) Description 11/15/2019 Telephone [facility] Imaging Center [address] [place] [id number] Shira Pulido, RT Social History Tobacco Use Types Packs/Day Years Used Date Smoking Tobacco: Smoker, Current Status Unknown Smokeless Tobacco: Never Alcohol Use Standard Drinks/Week Comments Yes 0 (1 standard drink = 0.6 oz pur e alcohol) Sex and Gender Information Value Date Recorded Sex Assigned at Not on file 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
--- OUTSIDE RECORDS SUMMARY | 2025-04-18 13:11 | XMS_ITS | Clinical Summary ---
Author Organization [facility] Address [address] [place] [address] Care Team Providers Care Member Certification Manager Name Role Phone Unavailable Primary Care Provider Unavailabl e Source Comments [facility] [employer],non-owned Affiliates and Associated Physician Practices is amultiple site organization consisting of ambulatory clinics and hospital sitesin [place], [place], [place] and [place]. This disclosure is being madepursuant to the Care Everywhere program and may not contain all information available regarding this patient. Last updated 18.[facility] [employer] Allergies No known active allergies Immunizations Immunization [...]
--- OUTSIDE RECORDS SUMMARY | 2025-04-18 13:11 | XMS_ITS | Clinical Summary ---
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 Not on file Not on file Not [...] this topic Medical Devices Implanted Type Area Wan Support Specialist Device Identifier Shelf Expiration Date Model / Serial / Lot Shell Actb 58mm Hip Sector Gription [place] - [id number] Implanted:Qty: 1 on 08/09/2017 by Les Pastrana MD at [facility] IMPLANT Left: Hip Depuy [employer] Inc 06/12/2027 [id number] / [id number] / [id number] Liner Actb Altrx [place] Neutral 58mm 36mm Hip - [id number] Implanted:Qty: 1 on 08/09/2017 by Les Pastrana MD at [facility] IMPLANT Left: Hip [employer]uy [employer] 06/12/2022 [id number] / [id number] / [id number] Head Fem 1.5mm 12/14 Taper 36mm Hip Cementless Biolox Delta Articul/Cesar - [id number] Implanted:Qty: 1 on 08/09/2017 by Les Pastrana MD at [facility] IMPLANT Left: Hip Depuy [employer] 05/12/2022 [id number] / [id number] / [id number] Femoral Stem12/14 Taper Implanted:Qty: 1 on 08/09/2017 by Les Pastrana MD at [facility] Left: Hip DePuy 12/10/2026 1010-12-060 / [id number] / [id number] Procedures Procedure Name Priority Date/Time Associated Diagnosis Comments HEPATITIS C ANTIBODY Routine 08/27/2016 9:13 AM CDT Encounter for hepatitis C screening test for low risk patient from Last 3 Months or Most Recently Relevant to Health Maintenance Results * HEPATITIS C ANTIBODY (08/27/2016 9:13 AM CDT) hepatitis C antibody 0.13 <1 S/CO 08/27/2016 10:29 PM CDT [facility] Comment: Signal/Cutoff ratio < 0.79 is Nondetected Signal/Cutoff ratio 0.80-0.99 is Grayzone Signal/Cutoff ratio > 0.99 is Detected Supplemental assays are recommended if signal/cutoff ratio is >/=1.00. Signal/cutoff ratio result >/= 5.00 is 97% predictive of positivity for recombinant immunoblot assay (RIBA) and will be reported to the [place] Department of Public Health as required. Blood specimen (specimen) Venipuncture / Unknown 08/27/2016 9:13 AM CDT 08/27/2016 9:14 AM CDT us Chavo Lloyd MD CHEMISTRY ORDERABLES Kaye cardenas Result [facility] [address] [place] [address], [place] from Last 3 Months or Most Recently Relevant to Health Maintenance Insurance MEDICARE C E[employer]ENCE Care Teams Roast Master Relationship Specialty Start Date End Date Chavo Lloyd MD [address] [place] [address] PCP - General Internal Medicine 05/20/16
--- OUTSIDE RECORDS SUMMARY | 2025-04-18 13:11 | XMS_ITS | Clinical Summary ---
Author Organization [facility] Address [address] [place] [id number] Care Team Providers Care Commissary Clerk Name Role Phone Wing Silvia ZAKIA Primary Care Provider [phone] Allergies Active Allergy Reactions Criticality Noted Date Comments Cyclobenzaprine Other (See comments) Medium 07/01/2017 Swelling, depression Swelling, bleeding, depression Naproxen Swelling Medium 08/01/2017 Fluid retention Medications ascorbic acid (ascorbic acid) 500 mg tablet,chewable Take 1 tablet/chew tab (500 mg total) by mouth 8 Active magnesium gluconate 200 mg tabletIndications: hypomagnesemia Take 2 tablets (400 mg total) by mouth daily Active vitamin E 1,000 unit capsule Take 1 capsule (1,000 Units total) by mouth daily Active lidocaine (LMX) 4 % cream Apply topically 3 (three) times a day 30 g 4 Active HYDROcodone-acetam inophen (NORCO) 5-325 mg per tabletIndications: Pain Take 1-2 tablets by mouth every 6 (six) hours as needed for pain 21 tablet 5 Active atorvastatin (LIPITOR) 80 mg tabletIndications: Acute CVA (cerebrovascular accident) (HCC),Hyperlipidem ia, unspecified hyperlipidemia type Take 1 tablet (80 mg total) by mouth daily 90 tablet 5 Active clopidogreL (PLAVIX) 75 mg tabletIndications: Acute CVA (cerebrovascular accident) (HCC) Take 1 tablet by mouth once daily 30 tablet 5 Active lisinopriL (PRINIVIL,ZESTRIL) 30 mg tabletIndications: Hypertension, essential,Acute CVA (cerebrovascular accident) ([facility]) Take 1 tablet by mouth once daily 90 tablet 5 Active Active Problems Problem Noted Date Diagnosed [...] weeks Assessment & Plan (06/08/2023 3:59 PM CHAMBER WALKER): Stable, currently well controlled BP at goal at visit; 126/74 Continue Lisinopril 20 mg Assessment & Plan (05/12/2023 12:37 PM CHAMBER WALKER): Not well controlled BP at visit 174/98 [...] been having pain in right arm again Erin 7.5-325 mg TID PRN Assessment & Plan (06/20/2023 12:19 PM CHAMBER WALKER): Stable, no know recurrent events; continuing to improve Continue ASA 325 mg daily, Plavix 75 mg daily, Atorvastatin 80 mg daily and Lisinopril 20 mg daily Assessment & Plan (05/12/2023 12:36 PM CHAMBER WALKER): Stable, no known recurrent events Continue ASA [...] needed Assessment & Plan (05/12/2023 12:36 PM CHAMBER WALKER): Stable, not well controlled Continue Atorvastatin 80 [...] week 12/29/2022 How often do you attend chur ch or oriental orthodox services? 1 to 4 times per year 12/29/2022 Do you belong to any clubs o r organizations such as pentecostal groups, unions, fraternal or athletic groups, or [...] place to sleep or slept in a penitentiary (including now)? No 12/13/2022 Personal Safety Answer Date Recorded Have you ever been in or are you currently in a harmful physical or emotional relationship or is someone making you feel afraid or unsafe? Denies 12/06/2023 Sex and Gender Information Value Date Recorded Sex Assigned at Not on file Legal Sex Male 9:07 AM CHAMBER WALKER Gender Identity Not on file Sexual Orientation Not on file Last Filed Vital Signs [...] Maintenance Due Date Last Done Comments Hepatitis B Screening 1963 Zoster Vaccine (1 of 2) 1997 Well Visit 65+ 05/11/2024 05/11/2023, 0712/2022, 12/17/2022 Fall Risk Assessment 10/05/2024 10/06/2023, 12/17/2022, 12/08/2022, Additional history exists Depression Screening 01/09/2025 01/10/2024, 10/06/2023, 09/07/2023, Additional history exists Covid-19 Vaccine (5 - 2024-2 6 season) 2025 05/21/2022, 04/21/2021, 08/26/2020, Additional history exists Influenza Vaccine (#1) 2025 , 05/21/2022, 03/13/2021, Additional history exists DTaP/Tdap/Td Vaccine (2 - Td or Tdap) 08/26/2025 08/27/2015 Pneumococcal vaccine 65+ Completed 11/29/2018, 01/2016 Abdominal Aortic Aneurysm (A AA) Screen Completed 01/05/2023, 11/30/2022, 12/26/2015, Additional history exists Hepatitis C Screening Discontinued Procedures Procedure Name [...] Electronically signed by Alex Feliciano M.D. KR: KR Report ID: [id number] Reading Location: [id number] Procedure Note Alex Feliciano MD - 11/30/2022 [...] Alex Feliciano M.D. KR: RIKY Report ID: [id number] Reading Location: [place] [address] Ludviina Prabhakar NP IMG CT PROCEDURES F inal Result from Last 3 Months or Most Recently Relevant to Health Maintenance [place] [address] MEDICARE [facility] Advance Directives For more information, please contact: [phone] * Full Code (Latest Code Status on File) Date Activated Date Inactivated Comments 11/29/2022 1:47 PM 12/02/2022 8:09 PM Care Teams Commissary Clerk Relationship Specialty Start Date End Date Silvia Dimas NP PCP - General Family Medicine 12/07/22
== END 2025-04-17 13:45 | disposition home or self-care (01) ==
PROVIDERS: PCP Nurse Practitioner Adult Health; Visit Provider Nurse Practitioner Adult Health
DX: D64.9 Anemia, unspecified (principal); N28.9 Disorder of kidney and ureter, unspecified; R97.20 Elevated prostate specific antigen [PSA]
CPT/HCPCS: 36415; 80048; 82728; 83540; 83550

== ENCOUNTER 2025-05-23 15:39 | Outpatient (CLI) | payer OTHER, SELFPAY ==
--- NOTE | ~2025-05-23 | CT_ITS ---
EXAM/PROCEDURE: CT abdomen pelvis w con HISTORY: hydronephrosis COMPARISON: None available. TECHNIQUE: IV contrast enhanced CT of the abdomen and pelvis performed. FINDINGS: Minimal fibrotic appearing changes in the lung bases which are otherwise clear. Heart size normal. In the abdomen and pelvis, moderate to severe bilateral hydroureteronephrosis, and markedly distended urinary bladder. The dome of the urinary bladder extends to the right of midline and up to the mid to lower pole level of the right kidney. No urolithiasis seen. Prostate moderately enlarged. An aorta biiliac stent graft which appears patent. Scattered subcentimeter low-density lesions in the liver. Extensive splenic granuloma. Adrenal glands appear normal. The stomach is unopacified and nondistended but no gross acute process. The bowel gas pattern is nonobstructive with no free air or pneumatosis seen. Trace amount of free fluid may be present. Moderate amount of stool extends to the cecum. Left total hip arthroplasty hardware appears intact. Advanced degenerative changes in the right hip and lumbar spine. IMPRESSION: 1. Moderate to severe bilateral hydronephrosis with severely distended urinary bladder; hydronephrosis may be associated with hydrostatic back pressure associated with urinary retention or urinary bladder outlet obstruction. Discrete lesion or mass is not identified; no urolithiasis seen. 2. Other chronic findings as above. Reviewed, dictated and finalized at location [facility] IMPRESSION: 1. Moderate to severe bilateral hydronephrosis with severely distended urinary bladder; hydronephrosis may be associated with hydrostatic back pressure associ ated with urinary retention or urinary bladder outlet obstruction. Discrete les ion or mass is not identified; no urolithiasis seen. 2. Other chronic findings as above.
--- OUTSIDE RECORDS SUMMARY | 2025-05-23 18:42 | XMS_ITS | Clinical Summary ---
Author Organization [facility] Address [address] [place] [phone] Phone Care Team Providers Care Electronics Parts Sales Representative Name Role Phone Unavailable Primary Care Provider [...] Years Used Date Smoking Tobacco: Former Cigarettes 30 0 06/13/1979 - 06/13/2009 Smokeless Tobacco: Never Alcohol Use Standard Drinks/Week Comments No 0 (1 standard drink = 0.6 oz pur e alcohol) Sex and Gender Information Value Date Recorded Sex Assigned at Not on file Legal Sex Male 3:05 PM PROSTHETIC AIDE Gender Identity Not on file Sexual Orientation Not on file Occupation Industry Job Start Date Job End Date Not on file Not on file Not on file Not on file Last Filed Vital Signs Vital Sign Reading Time Taken Comments Blood Pressure 138/67 05/17/2013 8:18 AM PROSTHETIC AIDE Pulse 72 05/17/2013 8:18 AM PROSTHETIC AIDE Temperature 36 C (96.8 F) 05/17/2013 8:18 AM PROSTHETIC AIDE Respiratory Rate 16 05/17/2013 5:10 AM PROSTHETIC AIDE Oxygen Saturation 93% 05/17/2013 5:10 AM PROSTHETIC AIDE Inhaled Oxygen Concentration - - Weight 97.9 kg (215 lb 12.8 oz) 05/16/2013 9:27 AM PROSTHETIC AIDE Height 185.4 cm (6' 1) 04/27/2013 11:0 1 AM PROSTHETIC AIDE Body Mass Index 28.47 04/27/2013 11:01 AM PROSTHETIC AIDE Plan of Treatment Health Maintenance Due Date Last Done Comments DTAP/TDAP/TD VACCINES (1 - Tdap) 1966 PNEUMOCOCCAL VACCINE 50+ YEARS (1 of 1 - PCV) 07/30/18 98 ZOSTER VACCINE (1 of 2) 1997 RSV VACCINE (60+ or ) (1 - 1-dose 75+ series) 2022 INFLUENZA VACCINE (#1) 2025 Insurance [facility] BLUE ACCESS/TRUE BLUE PPO Advance Directives For more information, please contact: [phone] * Full Code (Latest Code Status on File) Date Activated Date Inactivated Comments 05/16/2013 2:58 PM 05/17/2013 11:36 AM * Full Code Date Activated Date Inactivated Comments 05/16/2013 9:19 AM 05/16/2013 2:58 PM
--- OUTSIDE RECORDS SUMMARY | 2025-05-23 18:43 | XMS_ITS | Clinical Summary ---
Author Organization [facility] Address [address] [place] [address] Care Team Providers Care Radiology Physician Assistant Name Role Phone Unavailable Primary Care Provider Unavailabl e Source Comments [facility],non-owned Affiliates and Associated Physician Practices is amultiple site organization consisting of ambulatory clinics and hospital sitesin [place], [place], [place] and [place]. This disclosure is being madepursuant to the Care Everywhere program and may not contain all information available regarding this patient. Last updated 18.[facility] Allergies No known active allergies Immunizations Immunization [...] DEPRESSION SCREENING 06/13/2024 COVID-19 VACCINE ( - 2024-2 6 season) 2025 INFLUENZA VACCINE (#1) 2025 03/21/2018 [...]
--- OUTSIDE RECORDS SUMMARY | 2025-05-23 18:43 | XMS_ITS | Clinical Summary ---
Author Organization [facility] Address [address] [place] [phone] Care Team Providers Care Information Operator Name Role Phone WingSilvia ZAKIA Primary Care Provider [phone] Allergies Active Allergy Reactions Criticality Noted Date [...] for pain 21 tablet 11/10/19 25 Active clopidogreL (PLAVIX) 75 mg tabletIndications :Acute CVA (cerebrovascular accident) (HCC) Take 1 tablet by mouth once daily 30 tablet 03/08/20 25 Active lisinopriL (PRINIVIL,ZESTRIL ) 30 mg tabletIndications :Hypertension, essential,Acute CVA (cerebrovascular accident) (HCC) Take 1 tablet by mouth once daily 90 tablet 03/19/20 25 Active atorvastatin (LIPITOR) 80 mg tabletIndications :Acute CVA (cerebrovascular accident) (HCC),Hyperlipide preston, unspecified hyperlipidemia type Take 1 tablet (80 mg total) by mouth daily 1 tablet 05/07/20 Active atorvastatin (LIPITOR) 80 mg tabletIndications :Acute CVA (cerebrovascular accident) (HCC),Hyperlipide preston, unspecified hyperlipidemia type Take 1 tablet (80 mg total) by mouth daily 90 tablet 02/09/20 25 2024 Discontinued(R eorder) atorvastatin (LIPITOR) 80 mg tabletIndications :Acute CVA (cerebrovascular accident) (HCC),Hyperlipide preston, unspecified hyperlipidemia type Take 1 tablet (80 mg total) by mouth daily 90 tablet 1 05/07/20 25 2024 Discontinued Active Problems Problem Noted Date Diagnosed [...] weeks Assessment & Plan (06/08/2023 3:59 PM PARCEL WRAPPER): Stable, currently well controlled BP at goal at visit; 126/74 Continue Lisinopril 20 mg Assessment & Plan (05/12/2023 12:37 PM PARCEL WRAPPER): Not well controlled BP at visit 174/98 [...] been having pain in right arm again [place] [facility] 7.5-325 mg TID PRN Assessment & Plan (06/20/2023 12:19 PM PARCEL WRAPPER): Stable, no know recurrent events; continuing to improve Continue ASA 325 mg daily, Plavix 75 mg daily, Atorvastatin 80 mg daily and Lisinopril 20 mg daily Assessment & Plan (05/12/2023 12:36 PM PARCEL WRAPPER): Stable, no known recurrent events Continue ASA [...] needed Assessment & Plan (05/12/2023 12:36 PM PARCEL WRAPPER): Stable, not well controlled Continue Atorvastatin 80 mg daily Assessment & Plan (01/25/2023 5:50 PM CDT): Stable, not well controlled Continue atorvastatin 80 mg daily 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 Resolved Problems Problem Noted Date Diagnosed Date Resolved Date Aftercare following left hip joint replacement surgery 08/24/2017 12/17/2022 Encounters Date Type Department Care Team Description 05/07/2025 Orders Only [facility] [address] [place] [id number] Silvia Dimas NP Acute CVA (cerebrovascular accident) (HCC); Hyperlipidemia, unspecified hyperlipidemia type 05/07/2025 Telephone [facility] [address] [place] [address] Vanessa Vargas MA Chart Review ([facility] from Last 3 Months Immunizations Immunization Administration Dates Next Due Influenza, [...] often do you attend chur ch or sabianist services? 1 to 4 times per year 12/29/2022 Do you belong to any clubs o r organizations such as yarsani groups, unions, fraternal or athletic groups, or [...] place to sleep or slept in a group home (including now)? No 12/13/2022 Personal Safety Answer Date Recorded Have you ever been in or are you currently in a harmful physical or emotional relationship or is someone making you feel afraid or unsafe? Denies 12/06/2023 Sex and Gender Information Value Date Recorded Sex Assigned at Not on file Legal Sex Male 9:07 AM PARCEL WRAPPER Gender Identity Not on file Sexual Orientation [...] 10/06/2023, 09/07/2023, Additional history exists Covid-19 Vaccine (2024-2 6 season) 2025 05/21/2022, 04/21/2021, 08/26/2020, Additional [...] Alex Feliciano M.D. KR: RIKY Report ID: [id number] Reading Location: [id number] Procedure Note Alex Feliciano MD - 11/30/2022 [...] lower lobe 7 mm nodule, stable from 2019 (185). Stable 4mm left upper lobe nodule [...] Alex Feliciano M.D. KR: RIKY Report ID: [id number] Reading Location: [place] [address] Ludivina Prabhakar NP IMG CT PROCEDURES F inal Result from Last 3 Months or Most Recently Relevant to Health Maintenance Insurance [facility]ICARE [facility] Member Subscriber Plan / Payer (Ef fective 2022-Present) Name:Saray Phoenix W Relation to Subscriber:Self Name:Saray Phoenix W Payer ID:[id number] (NAIC) Type:MEDICARE RISK OTHER Address: [address] [place] [id number] [place] [address] [facility] Advance Directives For more information, please contact: [phone] * Full Code (Latest Code Status on File) Date Activated Date Inactivated Comments 11/29/2022 1:47 PM 12/02/2022 8:09 PM Care Teams Information Operator Relationship Specialty Start Date End Date Silvia Dimas NP PCP - General Family Medicine 12/07/22
--- OUTSIDE RECORDS SUMMARY | 2025-05-23 18:43 | XMS_ITS | Encounter Summary ---
Author Organization [facility] Address [address] [place] [address] Care Team Providers Care Service Advisor Name Role Phone Chavo Lloyd MD Primary Care Provider + Jovani Miller RN Unavailable [phone] Silvia Dimas NP Primary Care Provider [phone] Encounter Details Date Type Department Care Team (Late st Contact Info) Description 11/15/2019 Telephone [facility] [address] [place] [id number] Shira Pulido, RT Social History Tobacco Use Types Packs/Day Years Used Date Smoking Tobacco: Smoker, Current Status Unknown Smokeless Tobacco: Never Alcohol Use Standard Drinks/Week Comments Yes 0 (1 standard drink = 0.6 oz pur e alcohol) Sex and Gender Information Value Date Recorded Sex Assigned at Not on file Legal Sex Male 9:07 AM GOLD BEATER Gender Identity Not on file Sexual Orientation Not on file documented as of this encounter Plan of Treatment Not on file documented as of this encounter Visit Diagnoses Not on filedocumented in this encounter Care Teams Service Advisor Relationship Specialty Start Date End Date Chavo Lloyd MD PCP - General 06/29/16 12/06/22 Silvia Dimas NP PCP - General Family Medicine 12/07/22 Jovani Miller RN Mammography Supervisor 12/03/22 01/04/23 documented as of this encounter
--- OUTSIDE RECORDS SUMMARY | 2025-05-23 18:43 | XMS_ITS | Clinical Summary ---
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 Not on file Not on file [...] complete this topic Human Papillomavirus (HPV) Immunization (No Doses Required) Completed Immunochemical Fecal Occult Blood Discontinued Meningococcal Immunization (ACWY) Aged Out No longer eligible based on patient's age to complete this topic Rotavirus Immunization Aged Out No lo nger eligible based on patient's age to complete this topic Medical Devices Implanted Type Area Quarry Supervisor Dimension Stone Device Identifier Shelf Expiration Date Model / Serial / Lot Shell Actb 58mm Hip Sector Gription [employer] - [id number] Implanted:Qty: 1 on 08/09/2017 by Les Pastrana MD at [facility] IMPLANT Left: Hip [employer] 06/12/2027 [id number] / [id number] / [id number] Liner Actb Altrx North Hero Neutral 58mm 36mm Hip - [id number] Implanted:Qty: 1 on 08/09/2017 by Les Pastrana MD at [facility] IMPLANT Left: Hip [employer] 06/12/2022 [id number] / [id number] / [id number] Head Fem 1.5mm /14 Taper 36mm Hip Cementless Biolox Delta Articul/Cesar - [id number] Implanted:Qty: 1 on 08/09/2017 by Les Pastrana MD at [facility] IMPLANT Left: Hip [employer] 05/12/2022 [id number] / [id number] / [id number] Femoral Stem12/14 Taper Implanted:Qty: 1 on 08/09/2017 by Les Pastrana MD at [facility] Left: Hip DePuy 12/10/2026 [id number] / [id number] / [id number] Procedures Procedure Name Priority Date/Time Associated Diagnosis Comments HEPATITIS C ANTIBODY Routine 08/27/2016 9:13 AM CDT Encounter for hepatitis C screening test for low risk patient from Last 3 Months or Most Recently Relevant to Health Maintenance Results * HEPATITIS C ANTIBODY (08/27/2016 9:13 AM CDT) hepatitis C antibody 0.13 <1 S/CO 08/27/2016 10:29 PM CDT [facility] Comment: Signal/Cutoff ratio < 0.79 is [...] MD CHEMISTRY ORDERABLES Kaye cardenas Result [facility] [address] [place] [address], from Last 3 Months or Most Recently Relevant to Health [place] [address] MEDICARE C [place] Care Teams Child Support Investigator Relationship Specialty Start Date End Date Chavo Lloyd MD [address] [place] [address] PCP - General Internal Medicine 05/20/16
--- OUTSIDE RECORDS SUMMARY | 2025-05-23 18:44 | XMS_ITS | Clinical Summary ---
Author Organization [facility] Address [address] [place] [id number] Care Team Providers Care Physical Chemistry Professor Name Role Phone Unavailable Primary Care Provider [...]
[2025-05-23 19:14] LABS: Estimated Glomerular Filt Rate 54
== END 2025-05-23 15:40 | disposition home or self-care (01) ==
PROVIDERS: PCP Nurse Practitioner Adult Health; Visit Provider Physician Assistant
DX: N13.30 Unspecified hydronephrosis (principal)
CPT/HCPCS: 74177; Q9967